=== PATIENT | female | born 1960 | race Caucasian/White ===

== ENCOUNTER → 2025-05-19 | Day surgery (SDC) | payer MEDICARE ==
[~2025-05-19] MED LIST: FENTANYL CITRATE/PF 100MCG/2 ML INJ ONE; HYOSCYAMINE SULFATE 0.5 MG/ML INJ ONE; LIDOCAINE HCL 2% LOCAL INJ 5 ML SDV VIAL INJ ONE; ONDANSETRON HCL INJ 2MG/ML 2ML 2 MG/ML VIAL ONE; PHENYLEPHRINE HCL 1% 10 MG/ML VIAL ONE; PROPOFOL IV EMULSION 10 MG/ML 20 ML VIAL ONE; PROPOFOL IV EMULSION 50 ML IV ONE; STOOL SOFTENER1 EACH PO; SYMBICORT 16010.2 GM INH
[2025-05-19] MEDS: LACTATED RINGER'S 1,000 ML ONE (12:53)
[2025-05-19 16:05] VITALS: BP 119/80; PULSE 70; RESP 16; TEMP 98.1; O2SAT 98
== END ==
LOC: OR 12:12 → EDSEX 14:00
PROVIDERS: ATTEND Internal Medicine Gastroenterology
DX: Z12.11 Encounter for screening for malignant neoplasm of colon (principal); K63.5 Polyp of colon; D12.2 Benign neoplasm of ascending colon; D12.4 Benign neoplasm of descending colon; K57.30 Diverticulosis of large intestine without perforation or abscess without bleeding; K64.8 Other hemorrhoids; J44.9 Chronic obstructive pulmonary disease, unspecified; E78.5 Hyperlipidemia, unspecified; F17.210 Nicotine dependence, cigarettes, uncomplicated; F12.90 Cannabis use, unspecified, uncomplicated; Z79.51 Long term (current) use of inhaled steroids; Z80.0 Family history of malignant neoplasm of digestive organs; Z01.810 Encounter for preprocedural cardiovascular examination
CPT/HCPCS: 45385; 93005; J1980; J2003; J2371; J2405; J2704 ×2; J3010; J7121; 45380